=== PATIENT | male | born 1965 | race Caucasian/White ===

== ENCOUNTER 2018-05-08 12:35 | Emergency (ER) | payer SELFPAY ==
[2018-05-08 12:40] VITALS: BP 137/86
--- NOTE | 2018-05-08 13:04 | ER Document Report ---
HPI - HPI Pain Level: 0 Notes: Patient presents for chief complaint of medication refill. Patient has no physical complaints at this time. Patient reports he has been unable to get an appointment with his primary care provider. Past Medical History - General Information source: Patient - Social History Smoking Status: Never Smoker Family History: Reviewed & Not Pertinent Patient has suicidal ideation: No Patient has homicidal ideation: No Renal/ Medical History: Denies: Hx Peritoneal Dialysis Psychiatric Medical History: Reports: Hx Anxiety, Hx Depression Vertical Provider Document - CONSTITUTIONAL Notes: PHYSICAL EXAMINATION: GENERAL: Well-appearing, well-nourished and in no acute distress. HEAD: Atraumatic, normocephalic. EYES: Pupils equal round extraocular movements intact, conjunctiva are normal. ENT: Nares patent NECK: Normal range of motion LUNGS: No respiratory distress Musculoskeletal: Normal range of motion NEUROLOGICAL: Normal speech, normal gait. PSYCH: Normal mood, normal affect. SKIN: Warm, Dry, normal turgor, no rashes or lesions noted. - INFECTION CONTROL TRAVEL OUTSIDE OF THE [place] IN LAST 30 DAYS: No Course - Re-evaluation Re-evalutation: Medications refilled as per patient request. - Vital Signs Vital signs: Temp Pulse Resp BP Pulse Ox 97.5 F 126 H 16 137/86 H 97 05/08/18 12:39 05/08/18 12:39 05/08/18 12:39 05/08/18 12:39 05/08/18 12:39 Discharge - Discharge Clinical Impression: Medication refill Condition: Stable Disposition: HOME, SELF-CARE Additional Instructions: All of your medications were refilled for 30 days. Please continue to locate a primary care provider so that you can have better continuity of care and someone will be able to continue doing her medication management. Prescriptions: Trazodone HCl 50 mg PO QHS #30 tablet Citalopram Hydrobromide [Citalopram HBr] 20 mg PO DAILY #30 tablet Risperidone [Risperdal] 0.5 tab PO DAILY #15 tablet
== END 2018-05-08 13:05 | disposition home or self-care (01) ==
LOC: ER 12:35
DX: Z76.0 Encounter for issue of repeat prescription (principal)
CPT/HCPCS: 99281

== ENCOUNTER 2018-06-08 13:15 | Emergency (ER) | payer SELFPAY ==
--- NOTE | 2018-06-08 14:17 | ER Document Report ---
HPI - HPI Patient complains to provider of: Medication refill Time Seen by Provider: 06/08/18 13:37 Onset: This morning Onset/Duration: Gradual Pain Level: 0 Context: Patient has a history of anxiety, depression and bipolar disorder. Patient states that he is running out of his medications and needs a refill. Patient has not gotten established with a primary doctor here locally to refill his medications. Patient states that the pharmacy had been refilling it although they said that they could no longer refill it without a new prescription. Patient denies any recent change in his dosages. Patient denies any suicidal homicidal ideation. Patient has not followed up with a mental health provider locally either since relocating to this area from [place] over a year ago. Associated Symptoms: None Exacerbated by: Denies Relieved by: Denies Similar symptoms previously: No Recently seen / treated by doctor: No - ROS ROS below otherwise negative: Yes Systems Reviewed and Negative: Yes All other systems reviewed and negative - CONSTITUTIONAL Constitutional: DENIES: Fever, Chills - GASTROINTESTINAL Gastrointestinal: DENIES: Nausea, Patient vomiting - DERM Skin Color: Normal Skin Problems: None Past Medical History - General Information source: Patient - Social History Smoking Status: Never Smoker Chew tobacco use (# tins/day): No Frequency of alcohol use: None Drug Abuse: None Occupation: None Lives with: Alone Family History: Reviewed & Not Pertinent Patient has suicidal ideation: No Patient has homicidal ideation: No Renal/ Medical History: Denies: Hx Peritoneal Dialysis Psychiatric Medical History: Reports: Hx Anxiety, Hx Bipolar Disorder, Hx Depression Surgical Hx: Negative Vertical Provider Document - CONSTITUTIONAL Agree With Documented VS: Yes Exam Limitations: No Limitations General Appearance: WD/WN, No Apparent Distress - INFECTION CONTROL TRAVEL OUTSIDE OF THE [place] IN LAST 30 DAYS: No - HEENT HEENT: Atraumatic, Normal ENT Exam, Normocephalic - NECK Neck: Normal Inspection, Supple. negative: Lymphadenopathy-Left, Lymphadenopathy-Right - RESPIRATORY Respiratory: Breath Sounds Normal, No Respiratory Distress - CARDIOVASCULAR Cardiovascular: Regular Rate, Regular Rhythm, No Murmur - BACK Back: Normal Inspection - MUSCULOSKELETAL/EXTREMETIES Musculoskeletal/Extremeties: KIA THOMAS - NEURO Level of Consciousness: Awake, Alert, Appropriate Motor/Sensory: No Motor Deficit - DERM Integumentary: Warm, Dry, No Rash Course - Re-evaluation Re-evalutation: 06/08/18 14:[address] Belkys rausch patient presentation, it does recommend giving patient a month supply of his medications with instructions to follow-up with a mental health provider. I had long discussion with patient and his father that the emergency department does not typically refill medications and that he will need to get established with a primary doctor and/or mental health person to refill his medications. Patient and his father verbalized understanding. Patient denies any suicidal or homicidal ideation. Patient denies any recent medication dose changes. - Vital Signs Vital signs: Temp Pulse Resp BP Pulse Ox 98.3 F 87 16 122/80 98 06/08/18 13:27 06/08/18 13:27 06/08/18 13:27 06/08/18 13:27 06/08/18 13:27 Discharge - Discharge Clinical Impression: Medication refill Bipolar disorder Qualifiers: Active/Remission status: remission status unspecified Qualified Code(s): F31.9 - Bipolar disorder, unspecified Condition: Stable Disposition: HOME, SELF-CARE Instructions: Bipolar Disorder ([facility]) Additional Instructions: Return immediately for any new or worsening symptoms Followup with your primary care provider, call tomorrow to make a followup appointment You have to follow-up with a primary care provider or a mental health provider for any additional refills of your medication. The emergency department does not refill of medications. Prescriptions: Trazodone HCl 50 mg PO QHS #30 tablet Citalopram Hydrobromide [Celexa] 1 tab PO DAILY #30 tablet Risperidone [Risperdal] 0.5 mg PO DAILY #30 tablet Referrals: [facility] [Provider Group] - Follow up as needed [facility] [Provider Group] - Follow up as needed [facility] [Provider Group] - Follow up as needed
[2018-06-08 14:50] VITALS: BP 111/84
== END 2018-06-08 14:51 | disposition home or self-care (01) ==
LOC: ER 13:15
DX: F31.9 Bipolar disorder, unspecified (principal)
CPT/HCPCS: 99282